=== PATIENT | female | born 1950 | race Caucasian/White ===

== ENCOUNTER 2018-09-05 22:54 | Observation (INO) | payer MEDICARE, OTHER ==
[2018-09-05 23:13] LABS: ABSOLUTE BASOPHILS # (AUTO) 0.1 10^3/uL (0.0-0.2); ABSOLUTE EOSINOPHILS # (AUTO) 0.3 10^3/uL (0.0-0.6); ABSOLUTE LYMPHOCYTES (AUTO) 3.3 10^3/uL (0.5-4.7); ABSOLUTE MONOCYTES (AUTO) 0.9 10^3/uL (0.1-1.4); ABSOLUTE NEUT (AUTO) 6.1 10^3/uL (1.7-8.2); EOSINOPHILS % (AUTO) 3.1 % (0-6); HEMATOCRIT 49.9 % (36.0-47.0); HEMOGLOBIN 16.8 g/dL (12.0-15.5); LYMPHOCYTES % (AUTO) 30.9 % (13-45); MEAN CORPUSCULAR HEMOGLOBIN 28.1 pg (27.0-33.4); MEAN CORPUSCULAR HGB CONC 33.7 g/dL (32.0-36.0); MEAN CORPUSCULAR VOLUME 83 fl (80-97); MONOCYTES % (AUTO) 8.1 % (3-13); PLATELET COUNT 379 10^3/uL (150-450); RED CELL DISTRIBUTION WIDTH 14.3 % (11.5-14.0); SEGMENTED NEUTROPHILS % (AUTO) 56.9 % (42-78); TOTAL CELLS COUNTED % (AUTO) 100 %; WHITE BLOOD COUNT 10.7 10^3/uL (4.0-10.5)
[2018-09-05 23:17] LABS: INTERNATIONAL RATION (INR) 0.92; PROTHROMBIN TIME 12.8 SEC (11.4-15.4)
--- NOTE | 2018-09-05 23:25 | RADIOLOGY REPORT (SQ) ---
XR CHEST 1 VIEW HISTORY: CP. COMPARISON: None. FINDINGS: The heart size is normal. The lungs are clear. No pleural effusions or pneumothorax is seen. No acute bony findings. There is elevation of the right hemidiaphragm. IMPRESSION: No evidence of acute cardiopulmonary disease.
[2018-09-05 23:31] LABS: ALANINE AMINOTRANSFERASE 24 U/L (9-52); ALBUMIN 4.7 g/dL (3.5-5.0); ALKALINE PHOSPHATASE 73 U/L (38-126); ANION GAP 11 (5-19); ASPARTATE AMINO TRANSFERASE 23 U/L (14-36); BILIRUBIN,DIRECT 0.2 mg/dL (0.0-0.4); BILIRUBIN,TOTAL 0.4 mg/dL (0.2-1.3); BLOOD UREA NITROGEN 9 mg/dL (7-20); CALCIUM 9.9 mg/dL (8.4-10.2); CARBON DIOXIDE 29 mmol/L (22-30); CHLORIDE 99 mmol/L (98-107); CREATINE KINASE 55 U/L (30-135); GLUCOSE 109 mg/dL (75-110); POTASSIUM 4.3 mmol/L (3.6-5.0); SODIUM 139.3 mmol/L (137-145); TOTAL PROTEIN 7.6 g/dL (6.3-8.2)
--- NOTE | 2018-09-05 23:38 | EKG REPORT ---
SEVERITY:- NORMAL ECG - SINUS RHYTHM : Confirmed by: Kaela Carvajal MD 05-Sep-2018 23:37:22
[2018-09-05 23:41] LABS: CREATINE KINASE MB 0.39 ng/mL (<4.55)
[2018-09-05 23:45] LABS: TROPONIN I < 0.012 ng/mL
--- NOTE | 2018-09-05 23:48 | ER Document Report ---
ED Cardiac - General Chief Complaint: Chest Pain > 30 Stated Complaint: CHEST PAIN/NECK PAIN Time Seen by Provider: 09/05/18 23:35 Notes: Patient is a 68-year-old female that comes to the emergency department for chief complaint of chest pain. She has had it intermittently for the past 2 days but she became nervous because she had some neck pain as well. Pain is in the center of her chest when it occurs and it is short-lived. Denies shortness of breath, nausea, vomiting. Denies abdominal pain or flank pain. Comes by EMS, given 2 sublingual nitroglycerin and 324 mg of aspirin. Past medical history of hypertension, former smoker, hypothyroidism, medicated. Her brother had a CABG. She has never had a heart attack, stress test, or cardiac cath. She denies any current symptoms. She states that she is under a lot of stress at home trying to care for her grandson. TRAVEL OUTSIDE OF THE [place] IN LAST 30 DAYS: No - Related Data Allergies/Adverse Reactions: No Known Allergies Allergy (Unverified 09/06/18 01:07) Past Medical History - General Information source: Patient - Social History Smoking Status: Former Smoker Frequency of alcohol use: None Drug Abuse: None Lives with: Family Family History: Reviewed & Not Pertinent Patient has suicidal ideation: No Patient has homicidal ideation: No - Past Medical History Cardiac Medical History: Reports: Hx Hypertension Renal/ Medical History: Denies: Hx Peritoneal Dialysis Psychiatric Medical History: Reports: Hx Depression - Anxiety Past Surgical History: Reports: Hx Orthopedic Surgery - Rt knee - Immunizations Immunizations up to date: Yes Hx Diphtheria, Pertussis, Tetanus Vaccination: Yes Review of Systems - Review of Systems Constitutional: No symptoms reported EENT: No symptoms reported Cardiovascular: See HPI Respiratory: No symptoms reported Gastrointestinal: No symptoms reported Genitourinary: No symptoms reported Female Genitourinary: No symptoms reported Musculoskeletal: See HPI Skin: No symptoms reported Hematologic/Lymphatic: No symptoms reported Neurological/Psychological: See HPI Physical Exam - Vital signs Vitals: Temp Pulse Resp Pulse Ox 98.3 F 73 16 97 09/05/18 22:59 09/05/18 22:59 09/05/18 22:59 09/05/18 22:59 - Notes Notes: GENERAL: Alert, interacts well. No acute distress. HEAD: Normocephalic, atraumatic. EYES: Pupils equal, round, and reactive to light. Extraocular movements intact. ENT: Oral mucosa moist, tongue midline. Oropharynx unremarkable. Airway patent. Nares patent, no nasal septal hematoma, TM's intact. NECK: Full range of motion. Supple. Trachea midline. LUNGS: Clear to auscultation bilaterally, no wheezes, rales, or rhonchi. No respiratory distress. HEART: Regular rate and rhythm. No murmur ABDOMEN: Soft, non-tender. Non-distended. Bowel sounds present in all 4 quadr ants. GENITOURINARY: Deferred EXTREMITIES: Moves all 4 extremities spontaneously. No edema, normal radial and dorsalis pedis pulses bilaterally. No cyanosis. BACK: no cervical, thoracic, lumbar midline tenderness. No saddle anesthesia, normal distal neurovascular exam. NEUROLOGICAL: Alert and oriented x3. Normal speech. [cranial nerves II through XII grossly intact]. PSYCH: Normal affect, normal mood. SKIN: Warm, dry, normal turgor. No rashes or lesions noted. Course - Re-evaluation Re-evalutation: Initial workup reassuring. EKG unremarkable, chest x-ray unremarkable, CBC, chemistry unremarkable. Initial troponin is negative. Patient is currently chest pain-free, well-appearing on exam. Unremarkable vital signs. Unre markable physical exam. Her heart score is 4 (age >65 is two points, risk factors (hypertension, po sitive family history, BMI >30) give two points. I discussed with patient as result. She has never had a stress test or formal cardiac workup. Will discuss with hospitalist for admission for chest pain rule out. Patient states satisfaction and agreement with this plan. Discussed with Dr. Kan, hospitalist, patient will be admitted to telemetry observation. Patient updated. - Vital Signs Vital signs: Temp Pulse Resp BP Pulse Ox 98.1 F 77 15 147/75 H 98 09/06/18 01:51 09/06/18 01:51 09/06/18 01:51 09/06/18 01:51 09/06/18 01:51 - Laboratory Result Diagrams: 09/05/18 22:59 09/05/18 22:59 Laboratory results interpreted by me: 09/05/18 22:59 WBC 10.7 H RBC 6.00 H Hgb 16.8 H Hct 49.9 H RDW 14.3 H - EKG Interpretation by Me Additional EKG results interpreted by me: 09/05/18 23:47 EKG sinus rhythm at a rate of 72, unremarkable MN interval and QTC, normal axis, no T wave inversions or ST segment changes in consecutive leads. Discharge - Discharge Clinical Impression: Chest pain Qualifiers: Chest pain type: unspecified Qualified Code(s): R07.9 - Chest pain, unspecified Condition: Stable Disposition: ADMITTED OBSERVATION Admitting Provider: Hospitalist Unit Admitted: Telemetry
[2018-09-06] MEDS ORDERED: MAG HYDROX/AL HYDROX/SIMETH SUSP 30 ML UDCUP PO PRN (00:56)
[2018-09-06] MEDS ORDERED: ONDANSETRON 4 MG TAB.RAPDIS PO PRN (00:56)
[2018-09-06] MEDS ORDERED: ONDANSETRON HCL INJ/PF 4 MG/2 ML SDV IV PRN (00:56)
[2018-09-06] MEDS ORDERED: MAGNESIUM HYDROXIDE SUSP 30 ML UDCUP PO PRN (00:56)
[2018-09-06] MEDS ORDERED: MORPHINE SULFATE 10 MG/ML INJ IV PRN ×3 (01:12)
[2018-09-06] MEDS ORDERED: NITROGLYCERIN 0.4 MG/TAB 25 TAB/BOTTLE SL PRN (01:12)
[2018-09-06] MEDS ORDERED: LABETALOL HCL INJ 20 MG/4 ML DISP.SYRIN IV PRN (01:12)
[2018-09-06] MEDS ORDERED: HYDRALAZINE HCL INJ/PF 20 MG/1 ML SDV IV PRN (01:12)
[2018-09-06 01:50] LABS: FREE T3 3.16 pg/mL (2.77-5.27); FREE T4 (FREE THYROXINE) 1.18 ng/dL (0.78-2.19)
[2018-09-06 02:03] LABS: THYROID STIMULATING HORMONE 3.44 uIU/mL (0.47-4.68)
--- NOTE | 2018-09-06 02:23 | PDOC H&P ---
History of Present Illness Admission Date/PCP: CESAR MIGUEL NP Patient complains of: Chest pain History of Present Illness: BOB LOWE is a 68 year old female who presented to the emergency room with an acute episode of chest pain. The patient indicates that her moderately intense, dull, chest pain occurs at the mid and upper aspect of the left sternal border without radiation, lasting for a few seconds and then resolving spontaneously. She admits to numerous similar prior episodes, but she has noted that the episodes have been more frequent over the last several months. She admits 1 or 2 episodes nearly every day for the last few days and notes that this is an increase over her prior frequency. She further admits that she is a former smoker having discontinued smoking 40 years ago, but she does have hypertension and hypothyroidism requiring medication for control and a family history of positive for coronary artery disease. She became somewhat anxious at home because she was also having pain in her neck which was occurring continuously for several hours prior to, was unchanged by and continued after her chest pain. Because of her concern about having both neck and chest pain she called EMS and was given nitroglycerin x2 and supplemental oxygen in the ambulance with resolution of her chest discomfort but her neck pain has persist ed. In the emergency room she was found to have cardiac enzymes and an EKG which did not reflect any evidence of myocardial ischemia or injury and therefore she was admitted to the hospitalist service for further evaluation and treatment. Past Medical History Cardiac Medical History: Reports: Hypertension Denies: Atrial Fibrillation, Congestive Heart Failure, Coronary Artery Disease, DVT, Myocardial Infarction, Hyperlipidema, Pulmonary Embolism Pulmonary Medical History: Denies: Asthma, Chronic Obstructive Pulmonary Disease (COPD), Respiratory Failure, Tuberculosis EENT Medical History: Denies: Eyes - Double vision, Nose - Epistaxis Neurological Medical History: Denies: Hemorrhagic CVA, Ischemic CVA, Multiple Sclerosis, Seizures Endocrine Medical History: Reports: Hypothyroidism, Obesity Denies: Diabetes Mellitus Type 1, Diabetes Mellitus Type 2, Hyperthyroidism Renal/ Medical History: Denies: Chronic Kidney Disease, Nephrolithiasis Malignancy Medical History: Reports: None GI Medical History: Denies: Cirrhosis, Crohn's Disease, Gastroesophageal Reflux Disease, Hepatitis, Ulcerative Colitis Musculoskeltal Medical History: Denies: Arthritis, Fibromyalgia, Gout Skin Medical History: Denies: Eczema, Psoriasis Psychiatric Medical History: Reports: Depression, General Anxiety Disorder, Tobacco Dependency Denies: Alcohol Dependency, Substance Abuse Traumatic Medical History: Reports: None Hematology: Denies: Anemia, Bleeding Tendencies Infectious Medical History: Reports: None Past Surgical History Past Surgical History: Reports: Orthopedic Surgery - Rt knee Social History Information Source: Patient Lives with: Spouse/Significant other Smoking Status: Former Smoker Frequency of Alcohol Use: None Hx Recreational Drug Use: No Drugs: None Hx Prescription Drug Abuse: No - Advance Directive Resuscitation Status: Full Code Surrogate healthcare decision maker:: Spouse Family History Family History: CAD, Hypertension Parental Family History Reviewed: Yes Children Family History Reviewed: No Sibling(s) Family History Reviewed.: Yes Medication/Allergy Allergies/Adverse Reactions: No Known Allergies Allergy (Unverified 09/06/18 01:07) Review of Systems Constitutional: ABSENT: chills, fever(s) Eyes: ABSENT: visual disturbances, other - Eye pain Ears: ABSENT: hearing changes, other - Ear pain Nose, Mouth, and Throat: ABSENT: mouth pain, sore throat Cardiovascular: PRESENT: as per HPI, chest pain. ABSENT: dyspnea on exertion, edema, orthropnea, palpitations Respiratory: ABSENT: cough, dyspnea Gastrointestinal: ABSENT: abdominal pain, constipation, diarrhea, nausea, vomiting Genitourinary: ABSENT: dysuria, hematuria Musculoskeletal: ABSENT: deformity, joint swelling Integumentary: ABSENT: pruritus, rash Neurological: ABSENT: confusion, convulsions, memory loss Psychiatric: PRESENT: anxiety - Under a lot of stress at home due to care for a grandchild, depression Endocrine: ABSENT: cold intolerance, heat intolerance Hematologic/Lymphatic: ABSENT: easy bleeding, easy bruising Physical Exam Vital Signs: Temp Pulse Resp BP Pulse Ox 98.5 F 73 16 150/68 H 97 09/05/18 23:17 09/05/18 22:59 09/05/18 23:17 09/05/18 23:17 09/05/18 23:17 Intake & Output 09/04/18 09/05/18 09/06/18 23:59 23:59 23:59 Weight 101.5 kg General appearance: PRESENT: no acute distress, cooperative, obese Head exam: PRESENT: atraumatic, normocephalic Eye exam: PRESENT: conjunctiva pink, EOMI. ABSENT: conjunctiva pale, scleral icterus Ear exam: PRESENT: normal external ear exam. ABSENT: bleeding, drainage Mouth exam: PRESENT: dry mucosa, neck supple Neck exam: ABSENT: thyromegaly, tracheal deviation Respiratory exam: PRESENT: clear to auscultation romina, symmetrical, unlabored Cardiovascular exam: PRESENT: RRR. ABSENT: clicks, gallop, rubs Pulses: PRESENT: normal radial pulses, normal dorsalis pedis pul Vascular exam: PRESENT: normal capillary refill. ABSENT: pallor GI/Abdominal exam: PRESENT: normal bowel sounds, soft Rectal exam: PRESENT: deferred Extremities exam: ABSENT: joint swelling, pedal edema Musculoskeletal exam: PRESENT: normal inspection. ABSENT: deformity, dislocation, tenderness Neurological exam: PRESENT: alert, oriented to person, oriented to place, oriented to time, oriented to situation, CN II-XII grossly intact. ABSENT: motor sensory deficit Psychiatric exam: PRESENT: anxious, normal mood Skin exam: PRESENT: dry, intact, warm. ABSENT: jaundice, rash, urticaria Results Laboratory Results: 09/05/18 22:59 09/05/18 22:59 09/05/18 09/05/18 22:59 22:59 WBC 10.7 H RBC 6.00 H Hgb 16.8 H Hct 49.9 H MCV 83 MCH 28.1 MCHC 33.7 RDW 14.3 H Plt Count 379 Seg Neutrophils % 56.9 Lymphocytes % 30.9 Monocytes % 8.1 Eosinophils % 3.1 Basophils % 1.0 Absolute Neutrophils 6.1 Absolute Lymphocytes 3.3 Absolute Monocytes 0.9 Absolute Eosinophils 0.3 Absolute Basophils 0.1 Sodium 139.3 Potassium 4.3 Chloride 99 Carbon Dioxide 29 Anion Gap 11 BUN 9 Creatinine 0.71 Est GFR ( Amer) > 60 Est GFR (Non-Af Amer) > 60 Glucose 109 Calcium 9.9 Total Bilirubin 0.4 AST 23 ALT 24 Alkaline Phosphatase 73 Total Protein 7.6 Albumin 4.7 09/05/18 09/05/18 22:59 22:59 Creatine Kinase 55 CK-MB (CK-2) 0.39 Troponin I < 0.012 Impressions: Chest X-Ray 09/05/18 22:57 IMPRESSION: No evidence of acute cardiopulmonary disease. Assessment & Plan - Diagnosis (1) Chest pain Qualifiers: Chest pain type: unspecified Qualified Code(s): R07.9 - Chest pain, unsp ecified Is this a current diagnosis for this admission?: Yes Plan: Patient's chest pain will be evaluated with serial cardiac enzymes and a Car diolite stress test will be administered as soon as possible. Further evaluation will be performed as indicated. Patient will use morphine intravenously 2-4 mg every 2 hours as needed for chest pain not responsive to SL nitroglycerin. (2) Hypertension Is this a current diagnosis for this admission?: Yes Plan: Patient will be continued on her usual antihypertensive therapy during her hospital course with adjustments made only as required. (3) Hypothyroidism Is this a current diagnosis for this admission?: Yes Plan: Patient will be continued on her current thyroid replacement therapy and a thyroid profile will be obtained to evaluate the efficacy of her therapy. (4) Anxiety with depression Is this a current diagnosis for this admission?: Yes Plan: Patient's anxiety and depression will be addressed as needed with lorazepam 1 mg IV every 4 hours as needed anxiety or agitation. (5) Obesity (BMI 35.0-39.9 without comorbidity) Is this a current diagnosis for this admission?: Yes Plan: Dietary consultation will be obtained to assist the patient in a heart healthy diet and lifestyle choices that will improve her overall general health and longevity. - Time Time Spent: 30 to 50 Minutes Critical Time spent with patient: Less than 15 minutes Medications reviewed and adjusted accordingly: Yes Anticipated discharge: Home - Inpatient Certification Based on my medical assessment, after consideration of the patient's comorbidities, presenting symptoms, or acuity I expect that the services needed warrant INPATIENT care.: No I certify that my determination is in accordance with my understanding of Medicare's requirements for reasonable and necessary INPATIENT services [42 CFR 412.3e].: No Medical Necessity: Significant Comorbidiites Make Outpatient Treatment Too Risky, Need Close Monitoring Due to Risk of Patient Decompensation, Need For Continuous Telemetry Monitoring, Risk of Complication if Not Cared For in Hospital
[2018-09-06] MEDS: LORAZEPAM INJ 2 MG/1 ML VIAL IV PRN (02:50)
[2018-09-06 03:33] LABS: APPEARANCE,URINE CLEAR; BILIRUBIN,URINE NEGATIVE (NEGATIVE); COLOR,URINE YELLOW; GLUCOSE, URINE NEGATIVE (NEGATIVE); KETONES,URINE NEGATIVE (NEGATIVE); LEUKOCYTE ESTERASE,URINE TRACE (NEGATIVE); NITRITE,URINE NEGATIVE (NEGATIVE); PROTEIN,URINE NEGATIVE (NEGATIVE); URINE SPECIFIC GRAVITY 1.005; UROBILINOGEN,URINE NEGATIVE mg/dL (<2.0)
[2018-09-06 05:54] LABS: CREATINE KINASE MB 0.31 ng/mL (<4.55)
[2018-09-06 05:59] LABS: TROPONIN I < 0.012 ng/mL
[2018-09-06] MEDS ORDERED: SODIUM BICARBONATE 8.4% INJ 50 MEQ/50 ML DISP.SYRIN IV ONE (07:00)
[2018-09-06] MEDS ORDERED: INSULIN REG, HUMAN 100 UNIT/ML 3 ML VIAL (PYX) IV ONE (07:00)
[2018-09-06] MEDS ORDERED: DEXTROSE 50%-WATER 25 GM/50 ML DISP.SYRIN IV ONE (07:00)
[2018-09-06] MEDS: ACETAMINOPHEN 325 MG TABLET PO PRN ×2 (10:45→21:08)
[2018-09-06] MEDS: DOCUSATE SODIUM 100 MG CAPSULE PO SCH ×2 (10:45→18:00)
[2018-09-06] MEDS: FAMOTIDINE 20 MG TABLET PO SCH ×2 (10:45→21:08)
[2018-09-06] MEDS ORDERED: LEVOTHYROXINE SODIUM 0.05 MG TABLET PO ONE (12:00)
[2018-09-06] MEDS: FONDAPARINUX SODIUM INJ 2.5 MG/0.5 ML DISP.SYRIN SUBCUT SCH (12:44)
[2018-09-06 13:01] LABS: CREATINE KINASE MB 0.25 ng/mL (<4.55)
[2018-09-06 13:05] LABS: TROPONIN I < 0.012 ng/mL
--- NOTE | 2018-09-06 17:44 | PDOC PROGRESS REPORT ---
Subjective Progress Note for:: 09/06/18 Subjective:: The patient is a 68-year-old female that was admitted with atypical chest pain. She currently is in observation in the hospital awaiting a stress test which will be performed in the morning. When I saw the patient today she states her chest pain has just about resolved. In talking to the patient it appears that she has been under a tremendous amount of stress as her son is recently undergone a divorce and has custody of an 8-year-old grandson with ADD. 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 At this point I suspect her chest pain is due to her increased stress however we are going to rule her out with a stress test in the morning. Today she denies fever or shaking chills. No further episodes of chest pain or tightness. No heart palpitations. No nausea vomiting or diarrhea. No urinary complaints. Reason For Visit: CHEST PAIN Physical Exam Vital Signs: Temp Pulse Resp BP Pulse Ox 98.4 F 74 17 134/72 H 99 09/06/18 15:03 09/06/18 15:03 09/06/18 15:03 09/06/18 15:03 09/06/18 15:03 Intake & Output 09/05/18 09/06/18 09/07/18 06:59 06:59 06:59 Intake Total 320 Balance 320 Weight 101.7 kg General appearance: PRESENT: no acute distress, well-developed, well-nourished Head exam: PRESENT: atraumatic, normocephalic Eye exam: PRESENT: conjunctiva pink, EOMI, PERRLA. ABSENT: scleral icterus Respiratory exam: PRESENT: clear to auscultation romina. ABSENT: rales, rhonchi, wheezes Cardiovascular exam: PRESENT: RRR. ABSENT: diastolic murmur, rubs, systolic murmur Pulses: PRESENT: normal dorsalis pedis pul GI/Abdominal exam: PRESENT: normal bowel sounds, soft. ABSENT: distended, guarding, mass, organolmegaly, rebound, tenderness Rectal exam: PRESENT: deferred Extremities exam: PRESENT: full ROM. ABSENT: calf tenderness, clubbing, pedal edema Musculoskeletal exam: PRESENT: ambulatory Neurological exam: PRESENT: alert, awake, oriented to person, oriented to place, oriented to time, oriented to situation, CN II-XII grossly intact. ABSENT: motor sensory deficit Psychiatric exam: PRESENT: appropriate affect, normal mood. ABSENT: homicidal ideation, suicidal ideation Results Laboratory Results: 09/05/18 22:59 09/05/18 22:59 09/05/18 09/05/18 09/05/18 22:59 22:59 22:59 WBC 10.7 H RBC 6.00 H Hgb 16.8 H Hct 49.9 H MCV 83 MCH 28.1 MCHC 33.7 RDW 14.3 H Plt Count 379 Seg Neutrophils % 56.9 Lymphocytes % 30.9 Monocytes % 8.1 Eosinophils % 3.1 Basophils % 1.0 Absolute Neutrophils 6.1 Absolute Lymphocytes 3.3 Absolute Monocytes 0.9 Absolute Eosinophils 0.3 Absolute Basophils 0.1 Sodium 139.3 Potassium 4.3 Chloride 99 Carbon Dioxide 29 Anion Gap 11 BUN 9 Creatinine 0.71 Est GFR ( Amer) > 60 Est GFR (Non-Af Amer) > 60 Glucose 109 Calcium 9.9 Total Bilirubin 0.4 AST 23 ALT 24 Alkaline Phosphatase 73 Total Protein 7.6 Albumin 4.7 TSH 3.44 Free T4 1.18 Free T3 pg/mL 3.16 Urine Color Urine Appearance Urine pH Ur Specific [place] Urine Protein Urine Glucose (UA) Urine Ketones Urine Blood Urine Nitrite Ur Leukocyte Esterase Urine WBC (Auto) Urine RBC (Auto) 09/06/18 03:00 WBC RBC Hgb Hct MCV MCH MCHC RDW Plt Count Seg Neutrophils % Lymphocytes % Monocytes % Eosinophils % Basophils % Absolute Neutrophils Absolute Lymphocytes Absolute Monocytes Absolute Eosinophils Absolute Basophils Sodium Potassium Chloride Carbon Dioxide Anion Gap BUN Creatinine Est GFR ( Amer) Est GFR (Non-Af Amer) Glucose Calcium Total Bilirubin AST ALT Alkaline Phosphatase Total Protein Albumin TSH Free T4 Free T3 pg/mL Urine Color YELLOW Urine Appearance CLEAR Urine pH 6.0 Ur Specific [place] 1.005 Urine Protein NEGATIVE Urine Glucose (UA) NEGATIVE Urine Ketones NEGATIVE Urine Blood SMALL H Urine Nitrite NEGATIVE Ur Leukocyte Esterase TRACE H Urine WBC (Auto) 1 Urine RBC (Auto) 1 09/05/18 09/05/18 09/05/18 22:59 22:59 22:59 Creatine Kinase 55 CK-MB (CK-2) 0.39 Troponin I < 0.012 Cancelled NT-Pro-B Natriuret Pep 85 09/06/18 09/06/18 09/06/18 05:08 05:08 11:52 Creatine Kinase 47 43 CK-MB (CK-2) 0.31 Troponin I < 0.012 NT-Pro-B Natriuret Pep 09/06/18 11:52 Creatine Kinase CK-MB (CK-2) 0.25 Troponin I < 0.012 NT-Pro-B Natriuret Pep Impressions: Chest X-Ray 09/05/18 22:57 IMPRESSION: No evidence of acute cardiopulmonary disease. Assessment & Plan - Diagnosis (1) Chest pain Qualifiers: Chest pain type: unspecified Qualified Code(s): R07.9 - Chest pain, unspecified Is this a current diagnosis for this admission?: Yes Plan: The patient will have a Cardiolite stress test performed in the morning. Her serial troponins have been negative. I suspect her chest pain was due to her increased stress and anxiety. (2) Anxiety with depression Is this a current diagnosis for this admission?: Yes Plan: The patient sees a counselor. She has been leery about starting any medication and I have encouraged her to talk to her primary care physician about all of her increased stress and how to manage it as an outpatient. (3) Hypothyroidism Is this a current diagnosis for this admission?: Yes Plan: Continue Synthroid (4) Hypertension Is this a current diagnosis for this admission?: Yes Plan: Hypertension continue amlodipine. She has IV hydralazine available if needed (5) Obesity (BMI 35.0-39.9 without comorbidity) Is this a current diagnosis for this admission?: Yes
[2018-09-06 18:10] LABS: CREATINE KINASE MB 0.31 ng/mL (<4.55)
[2018-09-06 18:18] LABS: TROPONIN I < 0.012 ng/mL
[2018-09-06] MEDS: AMLODIPINE BESYLATE 5 MG TABLET PO SCH (21:07)
[2018-09-07] MEDS: LEVOTHYROXINE SODIUM 0.05 MG TABLET PO SCH (05:14)
[2018-09-07 05:44] LABS: HEMATOCRIT 43.9 % (36.0-47.0); HEMOGLOBIN 15.1 g/dL (12.0-15.5); MEAN CORPUSCULAR HEMOGLOBIN 28.6 pg (27.0-33.4); MEAN CORPUSCULAR HGB CONC 34.4 g/dL (32.0-36.0); MEAN CORPUSCULAR VOLUME 83 fl (80-97); PLATELET COUNT 341 10^3/uL (150-450); RED BLOOD COUNT 5.29 10^6/uL (3.72-5.28); RED CELL DISTRIBUTION WIDTH 13.7 % (11.5-14.0); WHITE BLOOD COUNT 8.3 10^3/uL (4.0-10.5)
[2018-09-07 06:27] LABS: ANION GAP 10 (5-19); BLOOD UREA NITROGEN 13 mg/dL (7-20); CALCIUM 9.3 mg/dL (8.4-10.2); CARBON DIOXIDE 27 mmol/L (22-30); CHLORIDE 104 mmol/L (98-107); CHOLESTEROL 183.23 mg/dL (0-200); GLUCOSE 101 mg/dL (75-110); POTASSIUM 4.6 mmol/L (3.6-5.0); SODIUM 141.4 mmol/L (137-145); TRIGLYCERIDES 103 mg/dL (<150)
[2018-09-07 06:38] LABS: DIRECT LDL 107 mg/dL (<100)
[2018-09-07] MEDS: ACETAMINOPHEN 325 MG TABLET PO PRN (08:51)
[2018-09-07] MEDS: FONDAPARINUX SODIUM INJ 2.5 MG/0.5 ML DISP.SYRIN SUBCUT SCH (09:03)
[2018-09-07] MEDS: FAMOTIDINE 20 MG TABLET PO SCH ×2 (10:20→23:30)
[2018-09-07] MEDS: DOCUSATE SODIUM 100 MG CAPSULE PO SCH ×2 (10:20→17:01)
[2018-09-07] MEDS: LORAZEPAM INJ 2 MG/1 ML VIAL IV PRN (13:14)
--- NOTE | 2018-09-07 18:09 | PDOC PROGRESS REPORT ---
Subjective Progress Note for:: 09/07/18 Subjective:: This is 68-year-old female patient who presented with chief complaint of chest pain. Reportedly patient is under psychosocial stress. 2 sets of cardiac enzymes are negative no EKG changes. Patient scheduled to have cardiac stress test in a.m. Reason For Visit: CHEST PAIN Physical Exam Vital Signs: Temp Pulse Resp BP Pulse Ox 98.2 F 74 16 99/52 L 99 09/07/18 15:29 09/07/18 15:29 09/07/18 15:29 09/07/18 15:29 09/07/18 15:29 Intake & Output 09/06/18 09/07/18 09/08/18 06:59 06:59 06:59 Intake Total 320 2039 Balance 320 2039 Weight 101.7 kg 101.8 kg General appearance: PRESENT: no acute distress, well-developed, well-nourished Head exam: PRESENT: atraumatic, normocephalic Eye exam: PRESENT: conjunctiva pink, EOMI, PERRLA. ABSENT: scleral icterus Ear exam: PRESENT: normal external ear exam Mouth exam: PRESENT: moist, tongue midline Neck exam: ABSENT: carotid bruit, JVD, lymphadenopathy, thyromegaly Respiratory exam: PRESENT: clear to auscultation romina. ABSENT: rales, rhonchi, wheezes Cardiovascular exam: PRESENT: RRR. ABSENT: diastolic murmur, rubs, systolic murmur Pulses: PRESENT: normal dorsalis pedis pul Vascular exam: PRESENT: normal capillary refill GI/Abdominal exam: PRESENT: normal bowel sounds, soft. ABSENT: distended, guarding, mass, organolmegaly, rebound, tenderness Rectal exam: PRESENT: deferred Extremities exam: PRESENT: full ROM. ABSENT: calf tenderness, clubbing, pedal edema Neurological exam: PRESENT: alert, awake, oriented to person, oriented to place, oriented to time, oriented to situation, CN II-XII grossly intact. ABSENT: motor sensory deficit Psychiatric exam: PRESENT: appropriate affect, normal mood. ABSENT: homicidal ideation, suicidal ideation Skin exam: PRESENT: dry, intact, warm. ABSENT: cyanosis, rash Results Laboratory Results: 09/07/18 04:56 09/07/18 04:56 09/07/18 09/07/18 04:56 04:56 WBC 8.3 RBC 5.29 H Hgb 15.1 Hct 43.9 MCV 83 MCH 28.6 MCHC 34.4 RDW 13.7 Plt Count 341 Sodium 141.4 Potassium 4.6 Chloride 104 Carbon Dioxide 27 Anion Gap 10 BUN 13 Creatinine 0.87 Est GFR ( Amer) > 60 Est GFR (Non-Af Amer) > 60 Glucose 101 Calcium 9.3 Magnesium 2.1 Triglycerides 103 Cholesterol 183.23 LDL Cholesterol Direct 107 H VLDL Cholesterol 21.0 HDL Cholesterol 58 09/05/18 09/05/18 09/05/18 22:59 22:59 22:59 Creatine Kinase 55 CK-MB (CK-2) 0.39 Troponin I < 0.012 Cancelled NT-Pro-B Natriuret Pep 85 09/06/18 09/06/18 09/06/18 05:08 05:08 11:52 Creatine Kinase 47 43 CK-MB (CK-2) 0.31 Troponin I < 0.012 NT-Pro-B Natriuret Pep 09/06/18 09/06/18 09/06/18 11:52 17:25 17:25 Creatine Kinase 50 CK-MB (CK-2) 0.25 0.31 Troponin I < 0.012 < 0.012 NT-Pro-B Natriuret Pep Impressions: Chest X-Ray 09/05/18 22:57 IMPRESSION: No evidence of acute cardiopulmonary disease. Assessment & Plan - Diagnosis (1) Chest pain Qualifiers: Chest pain type: other chest pain Qualified Code(s): R07.89 - Other chest pain; R07.8 - Other chest pain Is this a current diagnosis for this admission?: Yes Plan: Patient scheduled for cardiac stress test in the morning. (2) Hypothyroidism Qualifiers: Hypothyroidism type: acquired Qualified Code(s): E03.9 - Hypothyroidism, unspecified Is this a current diagnosis for this admission?: Yes Plan: Continue Synthroid (3) Obesity (BMI 35.0-39.9 without comorbidity) Is this a current diagnosis for this admission?: Yes Plan: Patient advised to do lifestyle modification (4) Hypertension Qualifiers: Hypertension type: essential hypertension Qualified Code(s): I10 - Essential (primary) hypertension Is this a current diagnosis for this admission?: Yes Plan: Continue current regimen
[2018-09-07] MEDS: AMLODIPINE BESYLATE 5 MG TABLET PO SCH (20:38)
[2018-09-08] MEDS: LEVOTHYROXINE SODIUM 0.05 MG TABLET PO SCH (05:11)
[2018-09-08] MEDS: ACETAMINOPHEN 325 MG TABLET PO PRN ×2 (05:55→15:47)
[2018-09-08] MEDS ORDERED: REGADENOSON INJ 0.4 MG/5 ML DISP.SYRIN IV ONE (10:00)
[2018-09-08] MEDS: FAMOTIDINE 20 MG TABLET PO SCH (10:21)
[2018-09-08] MEDS: DOCUSATE SODIUM 100 MG CAPSULE PO SCH (10:21)
[2018-09-08] MEDS: FONDAPARINUX SODIUM INJ 2.5 MG/0.5 ML DISP.SYRIN SUBCUT SCH (13:57)
[2018-09-08] MEDS ORDERED: ONDANSETRON 4 MG TAB.RAPDIS PO PRN (14:00)
[2018-09-08] MEDS ORDERED: ONDANSETRON HCL INJ/PF 4 MG/2 ML SDV IV PRN (14:00)
--- NOTE | 2018-09-08 16:38 | PDOC DISCHARGE SUMMARY ---
General - Admit/Disc Date/PCP Admission Date/Primary Care Provider: 09/06/18 00:37 CESAR MIGUEL NP Discharge Date: 09/08/18 - Discharge Diagnosis (1) Chest pain Is this a current diagnosis for this admission?: Yes (2) Hypothyroidism Is this a current diagnosis for this admission?: Yes (3) Obesity (BMI 35.0-39.9 without comorbidity) Is this a current diagnosis for this admission?: Yes (4) Hypertension Is this a current diagnosis for this admission?: Yes - Additional Information Resuscitation Status: Full Code Home Medications: Amlodipine Besylate [Norvasc 5 mg Tablet] 5 mg PO DAILY@199909/06/18 Levothyroxine Sodium [Synthroid 0.05 mg Tablet] 50 mcg PO Q6AM 09/06/18 History of Present Illness History of Present Illness: BOB LOWE is a 68 year old female who presented to the emergency room with an acute episode of chest pain. The patient indicates that her moderately intense, dull, chest pain occurs at the mid and upper aspect of the left sternal border without radiation, lasting for a few seconds and then resolving spontaneously. She admits to numerous similar prior episodes, but she has noted that the episodes have been more frequent over the last several months. She admits 1 or 2 episodes nearly every day for the last few days and notes that this is an increase over her prior frequency. She further admits that she is a former smoker having discontinued smoking 40 years ago, but she does have hypertension and hypothyroidism requiring medication for control and a family history of positive for coronary artery disease. She became somewhat anxious at home because she was also having pain in her neck which was occurring continuously for several hours prior to, was unchanged by and continued after her chest pain. Because of her concern about having both neck and chest pain she called EMS and was given nitroglycerin x2 and supplemental oxygen in the ambulance with resolution of her chest discomfort but her neck pain has persisted. In the emergency room she was found to have cardiac enzymes and an EKG which did not reflect any evidence of myocardial ischemia or injury and therefore she was admitted to the hospitalist service for further evaluation and treatment. Hospital Course Hospital Course: This is 68-year-old female patient who presented with chief complaint of chest pain. Reportedly patient is under tremendous psychosocial stress. 2 sets of cardiac enzymes are negative no EKG changes. Patient has cardiac stress test this morning and reported as. Patient remained chest pain-free. Her vital signs and blood works are within normal limits. Patient is stable enough to be discharged home. Physical Exam Vital Signs: Temp Pulse Resp BP Pulse Ox 98.2 F 71 16 129/62 H 97 09/08/18 11:59 09/08/18 11:59 09/08/18 11:59 09/08/18 11:59 09/08/18 11:59 Intake & Output 09/07/18 09/08/18 09/09/18 06:59 06:59 06:59 Intake Total 2599 Balance 2599 Weight 101.8 kg 101.8 kg General appearance: PRESENT: no acute distress, well-developed, well-nourished Head exam: PRESENT: atraumatic, normocephalic Eye exam: PRESENT: conjunctiva pink, EOMI, PERRLA. ABSENT: scleral icterus Ear exam: PRESENT: normal external ear exam Mouth exam: PRESENT: moist, tongue midline Neck exam: ABSENT: carotid bruit, JVD, lymphadenopathy, thyromegaly Respiratory exam: PRESENT: clear to auscultation romina. ABSENT: rales, rhonchi, wheezes Cardiovascular exam: PRESENT: RRR. ABSENT: diastolic murmur, rubs, systolic murmur Pulses: PRESENT: normal dorsalis pedis pul Vascular exam: PRESENT: normal capillary refill GI/Abdominal exam: PRESENT: normal bowel sounds, soft. ABSENT: distended, guarding, mass, organolmegaly, rebound, tenderness Rectal exam: PRESENT: deferred Extremities exam: PRESENT: full ROM. ABSENT: calf tenderness, clubbing, pedal edema Neurological exam: PRESENT: alert, awake, oriented to person, oriented to place, oriented to time, oriented to situation, CN II-XII grossly intact. ABSENT: motor sensory deficit Psychiatric exam: PRESENT: appropriate affect, normal mood. ABSENT: homicidal ideation, suicidal ideation Skin exam: PRESENT: dry, intact, warm. ABSENT: cyanosis, rash Results Laboratory Results: 09/07/18 04:56 09/07/18 04:56 09/05/18 09/05/18 09/05/18 22:59 22:59 22:59 Creatine Kinase 55 CK-MB (CK-2) 0.39 Troponin I < 0.012 Cancelled NT-Pro-B Natriuret Pep 85 09/06/18 09/06/18 09/06/18 05:08 05:08 11:52 Creatine Kinase 47 43 CK-MB (CK-2) 0.31 Troponin I < 0.012 NT-Pro-B Natriuret Pep 09/06/18 09/06/18 09/06/18 11:52 17:25 17:25 Creatine Kinase 50 CK-MB (CK-2) 0.25 0.31 Troponin I < 0.012 < 0.012 NT-Pro-B Natriuret Pep Impressions: Chest X-Ray 09/05/18 22:57 IMPRESSION: No evidence of acute cardiopulmonary disease. Qualifiers - * PATIENT BEING DISCHARGED WITH ANY OF THE FOLLOWING DIAGNOSIS: No
[2018-09-08 17:31] VITALS: BP 129/80
--- NOTE | 2018-09-10 21:15 | DRAGON STRESS TEST REPORT ---
Intravenous Lexiscan Cardiolite stress test using single photon emmision computerized tomography. Date of procedure: 09/08/2018. Ordering Provider: Dr. Gannon. Patient's status: In Patient. Indication: Chest pain. Coronary risk factors: Age, and hypertension Resting EKG: Stress EKG: No changes of ischemia. Reason for termination: Protocol. Conclusions: Normal EKG and hemodynamic response to IV Lexiscan. Nuclear data: At rest the patient was given millicuries of technetium 99m sestamibi injected intravenously. As per protocol rest non gated SPECT images were obtained. Subsequently the patient was given intravenous Lexiscan at a dose of 0.4 mg in 5 mL intravenously, followed by flush with normal saline. Subsequently the stress dose of millicuries of technetium 99m sestamibi was injected intravenously. As per protocol stress gated images were obtained. Nuclear interpretation: Review of images showed that all segments of the myocardium had normal perfusion at rest, and normal perfusion post stress with IV Lexiscan. All segments of the myocardium had normal motion, contraction, and thickening by gated study. T. I D. ratio was normal at . There is no transient ischemic dilatation of the left ventricle. Computer read rest, and stress left ventricular ejection fraction were %, and %, respectively. Conclusion: 1. There is no scintigraphic evidence of Lexiscan induced myocardial ischemia. 2. There is no scintigraphic evidence of myocardial infarction/scar. Recommendations: Aggressive risk factor modification, and treating the underlying co- morbidities. MTDD
== END 2018-09-08 17:48 | disposition home or self-care (01) ==
LOC: ER 22:54 → EH 09-06 00:37 → 4N 09-06 01:49
PROVIDERS: ADMIT Emergency Medicine; ATTEND Emergency Medicine
DX: R07.89 Other chest pain (principal); E03.9 Hypothyroidism, unspecified; E66.9 Obesity, unspecified; I10 Essential (primary) hypertension; M54.2 Cervicalgia; F41.8 Other specified anxiety disorders; Z68.39 Body mass index [BMI] 39.0-39.9, adult; Z79.899 Other long term (current) drug therapy; Z82.49 Family history of ischemic heart disease and other diseases of the circulatory system; Z87.891 Personal history of nicotine dependence; Z63.6 Dependent relative needing care at home; Z63.79 Other stressful life events affecting family and household
CPT/HCPCS: 93005; 99285; 36415 ×3; 84439; 82553 ×2; 82550 ×2; 83735; 84443; 85025; 85027; 85610; 80048; 80053; 81001; 84484 ×2; 84481; 83036; 80061; 83880; 93017; 71045; 78452; 93010; A9500; J2785; A9270 ×9; J2060 ×2; J3490 ×3; Q9969

== ENCOUNTER 2020-07-14 23:28 | Emergency (ER) | payer MEDICARE, OTHER ==
[2020-07-15 00:52] LABS: APPEARANCE,URINE CLEAR; BILIRUBIN,URINE NEGATIVE (NEGATIVE); COLOR,URINE AMBER; GLUCOSE, URINE NEGATIVE (NEGATIVE); KETONES,URINE NEGATIVE (NEGATIVE); LEUKOCYTE ESTERASE,URINE NEGATIVE (NEGATIVE); NITRITE,URINE POSITIVE (NEGATIVE); PROTEIN,URINE NEGATIVE (NEGATIVE); URINE SPECIFIC GRAVITY 1.017
[2020-07-15 01:06] LABS: HEMATOCRIT 45.6 % (36.0-47.0); HEMOGLOBIN 15.2 g/dL (12.0-15.5); MEAN CORPUSCULAR HEMOGLOBIN 28.1 pg (27.0-33.4); MEAN CORPUSCULAR HGB CONC 33.3 g/dL (32.0-36.0); MEAN CORPUSCULAR VOLUME 84 fl (80-97); PLATELET COUNT 414 10^3/uL (150-450); RED BLOOD COUNT 5.41 10^6/uL (3.72-5.28); RED CELL DISTRIBUTION WIDTH 14.4 % (11.5-14.0)
[2020-07-15 01:13] LABS: ALBUMIN 4.6 g/dL (3.5-5.0); ALKALINE PHOSPHATASE 72 U/L (38-126); ANION GAP 10 (5-19); ASPARTATE AMINO TRANSFERASE 40 U/L (14-36); BILIRUBIN,DIRECT 0.2 mg/dL (0.0-0.4); BILIRUBIN,TOTAL 0.7 mg/dL (0.2-1.3); BLOOD UREA NITROGEN 19 mg/dL (7-20); CALCIUM 10.1 mg/dL (8.4-10.2); CARBON DIOXIDE 29 mmol/L (22-30); CHLORIDE 96 mmol/L (98-107); GLUCOSE 93 mg/dL (75-110); POTASSIUM 4.9 mmol/L (3.6-5.0)
[2020-07-15 01:34] LABS: ABSOLUTE LYMPHOCYTES# (MANUAL) 0.5 10^3/uL (0.5-4.7); BASOPHILS % (MANUAL) 0 % (0-2); EOSINOPHILS % (MANUAL) 1 % (0-6); LYMPHOCYTES % (MANUAL) 4 % (13-45); MONOCYTES % (MANUAL) 8 % (3-13); SEGMENTED NEUTROPHILS % (MAN) 87 % (42-78); TOTAL CELLS COUNTED 100
[2020-07-15 01:35] LABS: ANISOCYTOSIS SLIGHT; PLATELET COMMENT ADEQUATE
[2020-07-15 01:36] LABS: OVALOCYTES SLIGHT
[2020-07-15 01:37] LABS: POIKILOCYTOSIS SLIGHT
--- NOTE | 2020-07-15 03:51 | ER Document Report ---
ED GI/ - General Chief Complaint: Urinary Problem Stated Complaint: POSSIBLE SIDE EFFECT TO MEDICATION Time Seen by Provider: 07/15/20 03:34 Primary Care Provider: HEVER MARTINEZ MD [Primary Care Provider] - Follow up in 3-5 days Notes: Patient is a 70-year-old female presents emergency department with a chief complaint of bilateral flank pain. Patient states that she is being treated for a urinary tract infection. She was started on Keflex on July 11 and then on July 13 she was switched over to Macrodantin. States she still has some flank pain. Denies any dysuria. TRAVEL OUTSIDE OF THE [place] IN LAST 30 DAYS: No - Related Data Allergies/Adverse Reactions: No Known Allergies Allergy (Unverified 09/06/18 01:07) Home Medications: synthroid, norvasc, macrodantin, pyridium Past Medical History - General Information source: Patient - Social History Smoking Status: Former Smoker Family History: Reviewed & Not Pertinent - Past Medical History Cardiac Medical History: Reports: Hx Hypertension Denies: Hx Atrial Fibrillation, Hx Congestive Heart Failure, Hx Coronary Artery Disease, Hx DVT, Hx Heart Attack, Hx Hypercholesterolemia, Hx Pulmonary Embolism Pulmonary Medical History: Denies: Hx Asthma, Hx COPD, Hx Respiratory Failure, Hx Tuberculosis Neurological Medical History: Denies: Hx Seizures Endocrine Medical History: Reports: Hx Hypothyroidism. Denies: Hx Diabetes Mellitus Type 1, Hx Diabetes Mellitus Type 2, Hx Hyperthyroidism Renal/ Medical History: Denies: Hx Peritoneal Dialysis GI Medical History: Denies: Hx Cirrhosis, Hx Crohn's Disease, Hx Gastroesophageal Reflux Disease, Hx Hepatitis, Hx Ulcerative Colitis Musculoskeletal Medical History: Denies Hx Arthritis, Denies Hx Fibromyalgia, Denies Hx Gout Skin Medical History: Denies Hx Eczema, Denies Hx Psoriasis Psychiatric Medical History: Reports: Hx Depression - Anxiety Infectious Medical History: Denies: Hx Hepatitis Past Surgical History: Reports: Hx Orthopedic Surgery - Rt knee - Immunizations Immunizations up to date: Yes Hx Diphtheria, Pertussis, Tetanus Vaccination: Yes Review of Systems - Review of Systems Notes: REVIEW OF SYSTEMS: CONSTITUTIONAL : Denies recent illness. Denies recent unintentional weight loss. Denies fever, chills, or sweats. EENT: Denies eye, ear, throat, or mouth pain, discharge, or symptoms. Denies nasal or sinus congestion. CARDIOVASCULAR: Denies chest pain. RESPIRATORY: Denies shortness of breath, cough, congestion, difficulty breathing, or wheezing. GASTROINTESTINAL: Denies nausea, vomiting, and diarrhea. Denies abdominal pain. Denies constipation. GENITOURINARY: See HPI. MUSCULOSKELETAL: Denies neck pain. Denies joint pain or swelling. See HPI. SKIN: Denies rash, itchiness, or lesions HEMATOLOGIC : Denies easy bruising or bleeding. LYMPHATIC: Denies swollen, painful, enlarged glands. NEUROLOGICAL: Denies no numbness or tingling denies weakness. Denies headache. Denies altered mental status. Denies alteration in speech. PSYCHIATRIC: Denies stress, anxiety, alteration in sleep patterns, or depression. All other systems reviewed and negative. Physical Exam - Vital signs Vitals: Temp Pulse Resp BP Pulse Ox 99.5 F 91 16 139/63 H 95 07/14/20 23:48 07/14/20 23:48 07/14/20 23:48 07/14/20 23:48 07/14/20 23:48 - Notes Notes: PHYSICAL EXAMINATION: GENERAL: Appears well, healthy, well-nourished, no acute distress. HEAD: Normocephalic, atraumatic. EYES: PERRL, conjunctiva normal, all extraocular movements intact, sclera nonicteric ENT: Moist mucous membranes. NECK: Supple, no noticeable swelling, redness, rash. Normal range of motion. LUNGS: Equal breath sounds bilaterally and clear to auscultation. No wheezes rales or rhonchi. CARDIOVASCULAR: S1-S2, regular rate, regular rhythm. Radial pulses 2+, normal. ABDOMEN: Normoactive bowel sounds. Soft, nontender, no guarding, no rebound tenderness, and no masses palpated. EXTREMITIES: Normal strength and range of motion, no pitting or edema. No cyanosis. NEUROLOGICAL: Moves all extremities upon command. Strength 5/5 in all extremities. PSYCH: Normal mood, normal affect. SKIN: Warm, dry. No rash, lesions, ulcerations noted. Normal skin turgor. BACK : CVA tenderness bilaterally. Course - Re-evaluation Re-evalutation: 07/15/20 03:52 Urine culture from the shows mixed urogenital pita. Today, the patient has a leukocytosis of 13,000 with a left shift of 87% neutrophils. Chemistries are unremarkable. Urinalysis shows nitrates in her urine. I resent her urine for culture. We will place the patient on ciprofloxacin. Advised her to follow-up with her primary care provider in regards to this visit. She is in agreement with this plan. Follow-up precautions were given. Verbal discharge instructions were given to the patient. They verbalized understanding. They are stable for discharge. - Vital Signs Vital signs: Temp Pulse Resp BP Pulse Ox 99.5 F 72 18 111/62 100 07/14/20 23:48 07/15/20 04:30 07/15/20 04:30 07/15/20 04:30 07/15/20 04:30 - Laboratory Results Result Diagrams: 07/15/20 00:31 07/15/20 00:31 Laboratory Results Interpreted: 07/15/20 07/15/20 07/15/20 00:31 00:31 00:31 WBC 13.0 H RBC 5.41 H RDW 14.4 H Seg Neuts % (Manual) 87 H Lymphocytes % (Manual) 4 L Abs Neuts (Manual) 11.3 H Sodium 135.4 L Chloride 96 L AST 40 H Urine Blood SMALL H Urine Nitrite POSITIVE H Urine Urobilinogen 4.0 H Critical Laboratory Results Reviewed: No Critical Results - Radiology Results Critical Radiology Results Reviewed: No Critical Results Discharge - Discharge Clinical Impression: Flank pain, Pyelonephritis Urinary tract infection Qualifiers: Urinary tract infection type: acute cystitis Hematuria presence: with hematuria Qualified Code(s): N30.01 - Acute cystitis with hematuria Condition: Stable Disposition: HOME, SELF-CARE Instructions: Ciprofloxacin ([facility]) Additional Instructions: Your urine shows findings consistent with a urinary tract infection. Please take all the antibiotics as directed even if your symptoms have improved. Please follow-up with your primary care physician as needed. Return to emergency room if you develop fever >101F, persistent vomiting, become lethargic, have severe pain in your sides, or any other symptoms that are concerning to you. Prescriptions: Ciprofloxacin HCl [Cipro 500 mg Tablet] 500 mg PO BID #14 tablet Referrals: HEVER MARTINEZ MD [Primary Care Provider] - Follow up in 3-5 days
[2020-07-15 04:38] VITALS: BP 111/62
== END 2020-07-15 04:38 | disposition home or self-care (01) ==
LOC: ER 23:28
DX: N30.01 Acute cystitis with hematuria (principal); N12 Tubulo-interstitial nephritis, not specified as acute or chronic; R10.9 Unspecified abdominal pain; I10 Essential (primary) hypertension; E03.9 Hypothyroidism, unspecified; Z79.899 Other long term (current) drug therapy; Z87.891 Personal history of nicotine dependence
CPT/HCPCS: 36415; 80053; 81001; 83690; 85025; 87086; 99283